=== PATIENT | male | born 1970 | race Caucasian/White ===

== ENCOUNTER 2019-03-19 18:02 | Emergency (ER) | payer OTHER ==
[~2019-03-19] VITALS: Ht 180.3 cm; Wt 86.2 kg
[2019-03-19] MEDS ORDERED: MUPIROCIN22 GM (18:15)
[2019-03-19] MEDS ORDERED: LISINOPRIL20 MG PO (18:16)
[2019-03-19] MEDS ORDERED: OMEPRAZOLE40 MG PO (18:16)
[2019-03-19] MEDS ORDERED: BACTRIM DS TAB1 EACH PO (18:16)
[2019-03-19] MEDS ORDERED: LUNESTA3 MG PO (18:17)
[2019-03-19] MEDS ORDERED: K-DUR 20 MEQ T20 MEQ PO (18:17)
[2019-03-19 18:51] LABS: ABSOLUTE BASOPHILS 0.1 thou/uL (0.0-0.2); ABSOLUTE EOSINOPHILS 0.6 thou/uL (0.0-0.7); ABSOLUTE LYMPHOCYTES 1.4 thou/uL (0.8-5.3); ABSOLUTE MONOCYTES 0.4 thou/uL (0.0-1.2); ABSOLUTE NEUTROPHILS 8.3 thou/uL (1.6-8.1); BASOPHILS 0.9 %; EOSINOPHILS 5.4 %; HEMATOCRIT 39.5 % (42.0-52.0); HEMOGLOBIN 13.5 gm/dL (14.0-18.0); LYMPHOCYTES 13.1 %; MCH 29.5 pg (26.0-34.0); MCHC 34.2 g/dL (28.0-37.0); MCV 86.3 fL (80.0-100.0); MONOCYTES 3.6 %; MPV 8.4 fl. (7.2-11.1); NUCLEATED RBCS 0 /100WBC; PLATELET COUNT* 263 thou/uL (150-400); RBC 4.58 mil/uL (4.50-6.00); RDW-CV 15.9 % (10.5-14.5); WBC 10.7 thou/uL (4.0-11.0)
[2019-03-19 19:02] LABS: PROTIME 10.1 Seconds (9.20-11.50)
[2019-03-19 20:01] LABS: TOTAL BILIRUBIN 0.1 mg/dL (<0.1-1.0); TROPONIN-I LEVEL <0.06 ng/mL (<0.06)
[2019-03-19 20:06] LABS: ANION GAP 13 mmol/L (7-16); CHLORIDE 102 mmol/L (98-107); CO2 21 mmol/L (21-32); POTASSIUM 4.7 mmol/L (3.5-5.1)
[2019-03-19 20:07] LABS: ALKALINE PHOSPHATASE 90 U/L (46-116); BUN 19 mg/dL (7-18); CALCIUM 8.2 mg/dL (8.5-10.1); GLUCOSE 120 mg/dL (70-99); LIPASE 146 U/L (73-393); SGOT 23 U/L (15-37)
[2019-03-19 20:08] LABS: ALBUMIN 3.6 g/dL (3.4-5.0); NT-PRO BRAIN NAT PEPTIDE 38 pg/mL (<300); SGPT 35 U/L (30-65); SODIUM 136 mmol/L (136-145); TOTAL PROTEIN 6.4 g/dL (6.4-8.2)
[2019-03-19] MEDS ORDERED: NORCO 5-325 TA1 EACH PO (21:56)
[2019-03-19] MEDS ORDERED: CLEOCIN HCL150 MG PO (21:56)
[2019-03-19 22:13] VITALS: BP 129/77
--- NOTE | 2019-03-20 10:28 | EKG ---
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
== END 2019-03-19 22:15 | disposition home or self-care (01) ==
LOC: M.ERS 18:02
PROVIDERS: Personal Emergency Response Attendant
DX: K11.20 Sialoadenitis, unspecified (principal); Z96.642 Presence of left artificial hip joint; F17.210 Nicotine dependence, cigarettes, uncomplicated